=== PATIENT | male | born 1955 | race Caucasian/White ===

== ENCOUNTER 2019-02-21 09:22 | Outpatient (CLI) | payer MEDICARE, SELFPAY ==
--- NOTE | 2019-02-21 09:47 | MR_ITS ---
WS: [id number] MRI THORACIC SPINE WITHOUT CONTRAST TECHNIQUE: Sagittal T1, T2 and STIR imaging. Axial T2 imaging. Noncontrast imaging obtained. CLINICAL INFORMATION: PAIN IN THORACIC SPINE COMPARISON: MRI 5 FINDINGS: Mild thoracic curve. No acute compression. Moderate central canal stenosis at C7-T1. Severe right C7- T1 foraminal narrowing with right subarticular and proximal foraminal protrusion with contact of the right C8 nerve root and thoracic cord. Postoperative changes lower cervical spine. No significant thoracic spine stenosis. Cord signal is no rmal. Mild hypertrophic changes lower thoracic spine. No significant disc extrusions or protrusions i n the thoracic spine. Disc space heights and vertebral body heights are well-maintained. Moderate bony foraminal narrowing worse at left T8-T9 mainly due to disc osteophytic ridging. Mild ri ght T8-T9 bony foraminal narrowing. Mild bilateral T9-T10 and T10-T11 bony foraminal narrowing. Normal paravertebral soft tissues. Normal visualized thoracic aorta. Adrenal glands are normal. MR/MR thoracic spin wo con* [id number] IMPRESSION: 1. Moderate central canal stenosis C7-T1 with severe right foraminal narrowing and impingement on the exiting right C8 nerve root. 2. No significant thoracic canal stenosis. Thoracic cord signal is normal. 3. No significant disc extrusions or protrusions in the thoracic spine. 4. Bony foraminal narrowing worse at moderate left T8-T9. 5. Mild hypertrophic changes in the lower thoracic spine. 6. Mild to moderate facet arthropathy in the lower thoracic spine.
--- NOTE | 2019-02-21 09:51 | XRR_ITS ---
PROCEDURE INFORMATION: Exam: XR Left Elbow Exam date and time: 02/21/2019 11:11 AM Age: 63 years old Clinical indication: Pain; Elbow; Bilateral; Additional info: Pain in left elbow TECHNIQUE: Imaging protocol: XR Left elbow. Views: 3 or more views. COMPARISON: No relevant prior studies available. FINDINGS: Bones/joints: No acute bony injury or malalignment. Soft tissues: Soft tissue calcification arising from the radial aspect of the distal humeral metaphysis. XR/XR elbow LT min 3V* [id number] IMPRESSION: No acute bony injury or malalignment.
--- NOTE | 2019-02-21 09:51 | XRR_ITS ---
PROCEDURE INFORMATION: Exam: XR Right Elbow Exam date and time: 02/21/2019 11:11 AM Age: 63 years old Clinical indication: Pain; Elbow; Bilateral; Additional info: Pain in right elbow TECHNIQUE: Imaging protocol: XR Right elbow. Views: 3 or more views. COMPARISON: No relevant prior studies available. FINDINGS: Bones/joints: Small exostosis arising from the radial aspect of the distal right humeral metaphysis. No acute bone injury or malalignment. Soft tissues: Unremarkable. XR/XR elbow RT min 3V* [id number] IMPRESSION: No acute bone injury or malalignment.
--- NOTE | 2019-02-21 09:54 | MR_ITS ---
WS: [id number] MRI CERVICAL SPINE NONCONTRAST TECHNIQUE: Sagittal T1, T2 and STIR imaging. Axial T2, gradient, and fiesta imaging. CLINICAL INFORMATION: CERVICALGIA COMPARISON: MRI [address] 4 6017 FINDINGS: Straightening of the normal cervical lordosis. Prior postoperative changes anterior cervical fusion w ith partial corpectomy and interbody fusion. Anterior cervical fusion at C4-C7. Partial corpectomy wi th interbody fusion graft at C6. Moderate central canal stenosis at C3-C4 alignment appears unchanged since the prior MRI. C2-C3: Normal. C3-C4: Prominent central disc protrusion with subligamentous migration of disc material. Impingement on the cervical cord with moderate central canal stenosis. This measures slightly larger today but no t significantly changed since 2016. Mild bilateral bony foraminal narrowing. C4-C5: Prior postoperative changes anterior cervical fusion. Mild bilateral bony foraminal narrowing. Mild facet arthropathy. Spinal canal is patent. C5-C6: Postoperative changes anterior cervical fusion. Mild bilateral bony foraminal narrowing left g reater than right. Spinal canal is patent. C6-C7: Postoperative changes corpectomy with interbody fusion graft. Moderate left and mild right bon y foraminal narrowing. Spinal canal is patent. C7-T1: Central disc protrusion eccentric to the right with moderate central canal stenosis and fillin g of the right subarticular disc recess. Severe right proximal and moderate left foraminal narrowing. Right pericentral protrusion is progressed at this level measuring 8.3 x 5.9 mm Visualized brain stem structures: Normal. Prevertebral soft tissues: Normal. MR/MR cervical spin wo con* [id number] IMPRESSION: 1. Straightening of the normal cervical lordosis with stable postoperative heavenly nges described above. 2. Progressed right pericentral protrusion at C7-T1 with moderate central jonathan l stenosis and impingement right subarticular recess. This is progressed from p revious with a right pericentral component measuring 8.3 x 5.9 mm. Slight impin gement on the cervical cord. 3. Central disc protrusion C3-C4 with subligamentous migration of disc materia l is slightly progressed but not significantly changed since 2016 with moderate central canal stenosis and impingement on the cervical cord. 4. Multilevel bony foraminal narrowing worse at left C3-C4, left C4-C5, left C 5-C6, and left C6-C7. Severe right C7-T1 foraminal narrowing.
== END 2019-02-21 09:23 | disposition home or self-care (01) ==
PROVIDERS: Family Provider Nurse Practitioner Family; PCP Nurse Practitioner Family; Referring Provider Nurse Practitioner Family; Visit Provider Nurse Practitioner Family
DX: M48.03 Spinal stenosis, cervicothoracic region (principal); M50.21 Other cervical disc displacement, high cervical region; M25.521 Pain in right elbow; M25.522 Pain in left elbow; M54.6 Pain in thoracic spine
CPT/HCPCS: 72141; 72146; 73080

== ENCOUNTER 2019-08-25 09:01 | Outpatient (CLI) | payer MEDICARE, MEDICAID, SELFPAY ==
--- NOTE | 2019-08-25 | CT_ITS ---
WS: [id number] CT LUMBAR SPINE TECHNIQUE: Contrast-enhanced CT of the lumbar spine with coronal and sagittal reformatted images. CLINICAL INFORMATION: DEGENEREATIVE LUMBAR SPINAL STENOSIS COMPARISON: MRI July 03, 2015 DLP: 2043.[address] scans at [facility] use at least one of these dose optimization techniques: automat ed exposure control; mA and/or kV adjustment per patient size (includes targeted exams where dose is matched to clinical indication); or iterative reconstruction. FINDINGS: Mild lumbar curve convex right. No acute compression. Degenerative disc disease with disc space narro wing worse at L3-L4 L4-L5 and L5-S1 with vacuum disc phenomenon. This is progressed since the prior e xaminations. Mild disc bulging worse at L3-L4, L4-L5 and L5-S1. No high-grade central canal stenosis. L1-L2: Tiny right foraminal protrusion with mild right foraminal narrowing. Spinal canal and foramen are patent. L2-L3: Mild annular bulging with slight narrowing of the right subarticular recess. Mild left greater than right foraminal narrowing with slight contact of the exiting L2 nerve roots. Mild facet arthrop athy. L3-L4: Mild disc bulging with narrowing of the left subarticular recess. Mild central canal stenosis. Left foraminal disc osteophyte protrusion impinges the exiting L3 nerve root with moderate left fora fabien narrowing. L4-L5: Shallow broad-based central protrusion with slight effacement of ventral thecal sac. Mild cent ral canal stenosis. Moderate right and mild left foraminal narrowing. Mild facet arthropathy. L5-S1: Mild disc bulging with slight effacement of the ventral thecal sac. Spinal canal is patent. Bi lateral foraminal protrusions results in moderate bilateral foraminal narrowing. Contact of the exiti ng L5 nerve roots bilaterally. Mild facet arthropathy. Visualized pelvic bony structures: Normal. Paravertebral soft tissues: Normal. CT/CT lumbar spine w con [id number] IMPRESSION: 1. Mild lumbar curve. Progressive degenerative disc disease at L3-L4 L4-L5 and L5-S1 with disc space narrowing and vacuum disc phenomenon. 2. Mild central canal stenosis L3-L4 and L4-L5 due to shallow disc bulging wit h facet arthropathy and ligamentum flavum hypertrophy. Impingement on the left L3-4 subarticular recess. 3. Small left foraminal protrusion L3-4 contacts the exiting left L3 nerve suki t with moderate left foraminal narrowing. 4. Right L4-5 disc osteophyte protrusion impinges the exiting L4 nerve root wi th moderate right foraminal narrowing. 5. Moderate bilateral L5-S1 foraminal narrowing with small bilateral foraminal protrusions and contact of the exiting L5 nerve roots bilaterally.
--- NOTE | 2019-08-25 | CT_ITS ---
WS: [id number] CT CERVICAL MYELOGRAM TECHNIQUE: CT of the cervical spine coronal and sagittal reformatted images post intrathecal administ ration of contrast. CLINICAL INFORMATION: CERVICAL SPONDYLOSIS COMPARISON: MRI February 21, 2019 DLP: 1653.[address] scans at [facility] use at least one of these dose optimization techniques: automat ed exposure control; mA and/or kV adjustment per patient size (includes targeted exams where dose is matched to clinical indication); or iterative reconstruction. FINDINGS: Straightening of the normal cervical lordosis. Anterior interbody cervical fusion C4-C7. Partial jan ectomy C6 with interbody fusion graft. Interbody fusion grafts C4-5 with evidence of bony bridging be yond the confines of the graft. No evidence of hardware loosening. C2-C3: Tiny central protrusion. Mild left and no significant right foraminal narrowing. Mild facet ar thropathy. Spinal canal is patent. C3-C4: Prominent central disc protrusion with contact and indentation on cervical cord. Mild left and no significant right foraminal narrowing. Mild to moderate central canal stenosis unchanged. Mild fa cet arthropathy. C4-C5: Left pericentral osteophytic ridging. Mild left greater than right bony foraminal narrowing. M ild facet arthropathy. Mild central canal stenosis. C5-C6: Osteophytic ridging with slight effacement of the ventral thecal sac. Mild bilateral bony fora fabien narrowing. Spinal canal is patent. C6-C7: Disc osteophytic ridging. Mild left and no significant right foraminal narrowing. Spinal canal is patent. C7-T1: Images at this level degraded due to beam hardening artifact from hardware. Small central disc osteophyte protrusion. Larger protrusion seen on the recent MRI not seen today and may have involute d. Mild bilateral bony foraminal narrowing. Mild facet arthropathy. Visualized posterior fossa structures: Mastoid air cells are well aerated. CT/CT cervical spine w con [id number] IMPRESSION: 1. Straightening of the normal cervical lordosis with anterior cervical fusion C4-C7 with interbody fusion. Partial corpectomy at C6 with interbody fusion gr aft. 2. No evidence of hardware loosening. Interbody fusion graft at C4-5 with evid ence of bony bridging beyond the confines of the graft. 3. Central disc protrusion C3-C4 with indentation on the ventral cervical cord with mild to moderate central canal stenosis. This appears unchanged since the prior MRI. 4. Small central disc osteophyte protrusion C7-T1 with mild central canal sten osis and slight contact of the cervical cord. Previously described larger protr usion at this level not visualized today and may have involuted in the interim. 5. Multilevel mild to moderate bony foraminal narrowing worse at left C3-C4, l eft C4-C5, left C6-C7, and bilateral C7-T1.
--- NOTE | 2019-08-25 | IR_ITS ---
WS: [id number] MYELOGRAM CERVICAL SPINE Fluoroscopic guided cervical myelogram CLINICAL INFORMATION: CERVICAL SPONDYLOSIS, DEGENERATIVE LUMBAR STENOSIS TECHNIQUE: The procedure, including risks, benefits, and complications, were discussed with the patie nt who agreed to proceed. A timeout was performed to confirm correct patient, procedure, and site. Using sterile technique, the patient was prepped and draped in the usual sterile fashion. After admin istration of local anesthesia using 1% preservative-free lidocaine and using fluoroscopic guidance, a 22-gauge spinal needle was advanced into the subarachnoid space at the L5-S1 level. Subsequently 13 cc of Omnipaque 300 was administered into the thecal sac. The needle was removed and hemostasis was a chieved. Subsequently the table was tilted down and contrast flowed freely into the cervical spine. S pot fluoroscopic images were obtained. FLUOROSCOPIC TIME: 2.3 minutes. Spot fluoroscopic images demonstrate no instability on flexion-extension in the lumbar or cervical sp ine. Prior postoperative changes anterior cervical fusion in the cervical spine C4-C7 with partial co rpectomy at C6-7. Fusion appears in good position. Normal C1-2 articulation. Mild lumbar curve convex right. Cholecystectomy clips. Disc space narrowing lumbar spine worse at L4-L5 and L5-S1. Aortic amy cification. Please see CT myelogram report for additional detail. IR/IR myelogram spine cervic/lumb IMPRESSION: 1. Uncomplicated lumbar and cervical myelogram. 2. No instability on flexion-extension in the lumbar or cervical spine. 3. Prior postoperative changes ACF C4-C7 with partial corpectomy at C6 and C7 with interbody fusion graft. Hardware appears in good position. 4. Please see CT myelogram report for additional detail.
[2019-08-25] MEDS: iohexol 300 mg/mL 50 mL Btl INTRATHECA (10:41)
[2019-08-25 10:57] LABS: Prothrombin Time (Patient) 11.5 Seconds (10.5-13.3)
== END 2019-08-25 09:02 | disposition home or self-care (01) ==
LOC: RADWPI 09:05
PROVIDERS: Family Provider Nurse Practitioner Family; PCP Nurse Practitioner Family; Visit Provider Neurological Surgery
DX: M47.22 Other spondylosis with radiculopathy, cervical region (principal); M54.2 Cervicalgia; M48.061 Spinal stenosis, lumbar region without neurogenic claudication; D69.9 Hemorrhagic condition, unspecified; M51.36 Other intervertebral disc degeneration, lumbar region; M25.78 Osteophyte, vertebrae
CPT/HCPCS: 62305; 72040; 72120; 72126; 72132; 85610; Q9967

== ENCOUNTER 2019-08-25 10:52 | Outpatient (CLI) | payer MEDICARE, MEDICAID, SELFPAY ==
--- NOTE | 2019-08-25 | XR_ITS ---
WS: [id number] PROCEDURE: XR chest 2V* [id number] CLINICAL INFORMATION: DYSPNEA COMPARISON: 017 FINDINGS: Heart: Cardiomegaly. Aortic calcification. Lungs: Moderate chronic emphysematous changes. No acute pulmonary infiltrates. Bones: Postoperative changes lower cervical spine. XR/XR chest 2V* [id number] IMPRESSION: No acute chest findings.
== END 2019-08-25 10:53 | disposition home or self-care (01) ==
LOC: RADWPI 10:54
PROVIDERS: Family Provider Nurse Practitioner Family; PCP Nurse Practitioner Family; Visit Provider Nurse Practitioner Family
DX: R06.00 Dyspnea, unspecified (principal)
CPT/HCPCS: 71046

== ENCOUNTER 2021-03-04 11:30 | Outpatient (CLI) | payer MEDICARE, MEDICAID, SELFPAY ==
[2021-03-04 11:42] VITALS: BP 149/89; PULSE 94; RESP 17; TEMP 36.5; O2SAT 97; BMI 27.1
[2021-03-04 12:43] VITALS: BP 110/69; PULSE 62; RESP 16; TEMP 36.5; O2SAT 96
[2021-03-04 13:45] VITALS: BP 106/62; PULSE 63; RESP 17; TEMP 36.5; O2SAT 95
== END 2021-03-04 11:31 | disposition home or self-care (01) ==
LOC: OPS 11:36
PROVIDERS: PCP Nurse Practitioner Family; Visit Provider Nurse Practitioner Family
DX: U07.1 COVID-19 (principal)
CPT/HCPCS: 96365

== ENCOUNTER 2023-11-20 11:34 | Emergency (ER) | payer MEDICARE, MEDICAID, SELFPAY ==
[2023-11-20 11:41] VITALS: BP 167/82; PULSE 69; RESP 16; TEMP 36.8; O2SAT 98
--- NOTE | 2023-11-20 12:21 | USCV_ITS ---
Giacomo George Age: 68 Gender: M : 1955 Exam Date: 11/20/2023 12:47 Ordering Phys: Jesus Banks MD Technologist: Niko Colby Exam Location: [facility] – [place] Indication: calf pain PROCEDURES: Venous duplex imaging was performed in only the left lower extremity. The following venous structures were evaluated: common femoral vein, profunda vein, proximal portion of the greater saphenous vein, superficial femoral vein, and the popliteal vein. In addition, the posterior tibial and peroneal trunk were evaluated. Serial compression, augmentation maneuvers, and spectral Doppler flow evaluation were performed. FINDINGS: There is no dvt visualized at this time. There does appear to be thrombus extending through most of the GSV from saph-fem junction to ankle. There is a small section below knee that appears free of thrombus. This thrombus appears partial and echogenic. CONCLUSIONS No DVT left lower extremity. Chronic appearing superficial thrombophlebitis left GSV to femoral junction. Dr. Binta Og DO (Electronically Signed) Final Date: 20 November 2023 13:16 S
--- NOTE | 2023-11-20 12:35 | W.ED.EXTPRO ---
HPI - Extremity Problem General: Chief complaint: Extremity Problem,Nontraumatic Stated complaint: LT leg swollen Time Seen by Provider: 11/20/23 11:37 History of Present Illness: Patient is a 68-year-old male who is currently on Eliquis due to history of atrial fibrillation and presents to the ER due to complaints of left lower calf pain for about 2-1/2 weeks. He reports having a focal area of tenderness to the posterior calf. He states that will sometimes be warm to the touch but is not currently so. He denies any known recent injury or trauma but does have a previous spider bite envenomation at that area that had a large open wound with delayed healing and wound closure several years ago. Associated symptoms: Deny chest pain, fever(s) or rash Related Data Home Medications Medication Instructions Recorded Confirmed albuterol sulfate 90 mcg/actuation 2 puff inhalation Q4H PRN 11/20/23 11/20/23 aerosol inhaler (Ventolin HFA) Shortness Of Breath amlodipine 5 mg tablet 5 mg PO BID PRN elevated blood 11/20/23 11/20/23 pressure apixaban 5 mg tablet (Eliquis) 5 mg PO BID 11/20/23 11/20/23 ascorbic acid (vitamin C) 1,000 mg 500 mg PO DAILY 11/20/23 11/20/23 tablet (Vitamin C) aspirin 81 mg tablet,delayed 81 mg PO DAILY 11/20/23 11/20/23 release bisoprolol fumarate 5 mg tablet 5 mg PO DAILY 11/20/23 11/20/23 cetirizine 10 mg tablet 10 mg PO DAILY 11/20/23 11/20/23 clonidine HCl 0.1 mg tablet 0.1 mg PO DAILY PRN high blood 11/20/23 11/20/23 pressure cyanocobalamin (vitamin B-12) 1,000 mcg PO DAILY 11/20/23 11/20/23 1,000 mcg tablet (Vitamin B-12) ergocalciferol (vitamin D2) 1,250 1,250 mcg PO Q7D 11/20/23 11/20/23 mcg (50,000 unit) capsule ipratropium 0.5 mg-albuterol 3 mg 3 ml inhalation QID 11/20/23 11/20/23 (2.5 mg base)/3 mL nebulization soln isosorbide mononitrate 30 mg 30 mg PO QAM 11/20/23 11/20/23 tablet,extended release 24 hr labetalol 100 mg tablet 100 mg PO BID 11/20/23 11/20/23 levothyroxine 50 mcg tablet 50 mcg PO DAILY 11/20/23 11/20/23 losartan 100 mg tablet 100 mg PO DAILY 11/20/23 11/20/23 meloxicam 15 mg tablet 15 mg PO DAILY 11/20/23 11/20/23 nitroglycerin 0.4 mg sublingual 0.4 mg sublingual PRN PRN chest 11/20/23 11/20/23 tablet pain spironolactone 50 mg tablet 50 mg PO BID 11/20/23 11/20/23 testosterone cypionate 200 mg/mL 300 mg IM Q7D 11/20/23 11/20/23 intramuscular oil tizanidine 4 mg tablet 4 mg PO QID PRN muscle pain 11/20/23 11/20/23 trazodone 100 mg tablet 100 mg PO DAILY PRN sleep 11/20/23 11/20/23 zinc gluconate 50 mg tablet 50 mg PO DAILY 11/20/23 11/20/23 Allergies Allergy/AdvReac Type Severity Reaction Status Date / Time No Known Allergies Allergy Verified 11/20/23 11:45 Review of Systems Const: Denies: fever(s), chills or diaphoresis Card: Denies: chest pain Resp: Denies: dyspnea GI: Denies: abdominal pain, nausea or vomiting Skin/Breast: Denies: rash Neuro: Denies: headache(s) Physical Exam Const: COMMON NORMALS: no acute distress, average body habitus, alert and well nourished GENERAL APPEARANCE: cooperative ORIENTATION/CONSCIOUSNESS: Yes awake HENMT: COMMON NORMALS: normocephalic and atraumatic HEAD & SCALP: normocephalic and atraumatic Eye: COMMON NORMALS: conjunctivae normal CONJUNCTIVA: Yes conjunctivae normal Neck/C-Spine: GENERAL: Yes normal visual inspection Resp: COMMON NORMALS: normal respiratory effort, No retractions and No use of accessory muscles Cardio: COMMON NORMALS: regular rhythm and Peripheral pulses 2+ throughout RHYTHM: regular rhythm PERIPHERAL PULSES: Peripheral pulses 2+ throughout GI: COMMON NORMALS: Soft to palpation and non-tender PALPATION: Yes Soft to palpation Extremity: COMMON NORMALS: full ROM and no pedal edema OTHER: Varicose veins noted to the left lower extremity. No erythema or warmth noted to the calf or proximal thigh. 2+ DP and PT pulses to bilateral lower extremities. Patient does have a scar to the medial portion of the left lower calf and leg from previous spider bite wound. He has a focal area tenderness to the superior portion of this scar. There is no fluctuance or redness or warmth of this area. Neuro: COMMON NORMALS: no focal motor deficits SENSORIUM/ORIENTATION: Yes alert Skin: COMMON NORMALS: no rashes or lesions noted GENERAL SKIN EXAM: no rashes or lesions noted Course Vital Signs: Vital signs: Vital Signs Temperature 98.3 F 11/20/23 11:41 Pulse Rate 69 11/20/23 11:41 Respiratory Rate 16 11/20/23 11:41 Blood Pressure 167/82 11/20/23 11:41 Pulse Oximetry 98 11/20/23 13:09 Oxygen Delivery Me thod Room Air 11/20/23 13:09 MDM - Extremity (Nontraumatic) Medical Decision Making Patient is a well-appearing 68-year-old gentleman who presents to the ER with primary complaint of concern for possible DVT in the left lower extremity. He states he has had over 2-week history of some pain to the distal left posterior calf. He does have a previous wound to this injury from a spider bite. Patient is anticoagulated on Eliquis. He states his PCP suggested he come to the ER for evaluation. His exam is benign other than a noticeable scar from his previous spider bite. He has neurovascular intact in all 4 extremities. Venous duplex of the left lower extremity does not show any evidence of a DVT. He does have what appears to be chronic superficial thrombophlebitis. His pain is localized to a very specific 1 to 2 cm area of the distal calf. There is no evidence of fluid collection or abscess in this area. There is no erythema or warmth to suggest a cellulitis. He is nontoxic in appearance. I have recommended supportive care with rest, elevation, warm compresses, and follow-up with the PCP. At this time I do not see any indication for additional labs or imaging and refer him back to his PCP. All radiology interpretation(s) finalized by discharge Discharge Plan Discharge Patient Disposition: Home Clinical Impression: Superficial thrombophlebitis Qualifiers: Superficial thrombophlebitis-Involved body area: lower extremity Laterality: left Qualified Code(s): I80.02 - Phlebitis and thrombophlebitis of superficial vessels of left lower extremity Condition: Stable Prescriptions: No Action ascorbic acid (vitamin C) [Vitamin C] 1,000 mg Tablet 500 mg PO DAILY clonidine HCl 0.1 mg tablet 0.1 mg PO DAILY PRN (Reason: high blood pressure ) ipratropium-albuterol 0.5 mg-3 mg(2.5 mg base)/3 mL solution for nebulization 3 ml INHALATION QID cetirizine 10 mg tablet 10 mg PO DAILY tizanidine 4 mg tablet 4 mg PO QID PRN (Reason: muscle pain ) meloxicam 15 mg tablet 15 mg PO DAILY isosorbide mononitrate 30 mg tablet extended release 24 hr 30 mg PO QAM cyanocobalamin (vitamin B-12) [Vitamin B-12] 1,000 mcg Tablet 1,000 mcg PO DAILY amlodipine 5 mg tablet 5 mg PO BID PRN (Reason: elevated blood pressure ) aspirin [Aspir-81] 81 mg Tablet,Delayed Release (Dr/Ec) 81 mg PO DAILY bisoprolol fumarate 5 mg tablet 5 mg PO DAILY trazodone 100 mg tablet 100 mg PO DAILY PRN (Reason: sleep ) levothyroxine 50 mcg tablet 50 mcg PO DAILY nitroglycerin 0.4 mg tablet, sublingual 0.4 mg sublingual PRN PRN (Reason: chest pain ) zinc gluconate 50 mg Tablet 50 mg PO DAILY ergocalciferol (vitamin D2) 1,250 mcg (50,000 unit) capsule 1,250 mcg PO Q7D testosterone cypionate 200 mg/mL oil 300 mg IM Q7D labetalol 100 mg tablet 100 mg PO BID albuterol sulfate [Ventolin HFA] 90 mcg/actuation HFA aerosol inhaler 2 puff INHALATION Q4H PRN (Reason: Shortness Of Breath) losartan 100 mg tablet 100 mg PO DAILY spironolactone 50 mg tablet 50 mg PO BID Eliquis 5 mg tablet 5 mg PO BID Discharge Orders: Discharge ED (Routine); Ordered 11/20/23 Ordered By: Jesus Banks Referrals: Sheba Ruelas [Primary Care Provider] - Patient Instructions: Opioid Safety, Pain Management Activity Restrictions/Additional Instructions: Apply warm compresses to the affected area to help with pain. Keep your leg elevated to help with pain. Follow-up with your PCP Coding Level of Care Code ED [employer] for [employer]
[2023-11-20 13:09] VITALS: O2SAT 98
[2023-11-20 14:02] VITALS: BP 171/90; PULSE 77; RESP 16; O2SAT 98
[2023-11-20 14:08] VITALS: BP 171/90; PULSE 84; O2SAT 99
== END 2023-11-20 14:16 | disposition home or self-care (01) ==
PROVIDERS: Emergency Provider Student in an Organized Health Care Education/Training Program; PCP Nurse Practitioner Family
DX: I80.02 Phlebitis and thrombophlebitis of superficial vessels of left lower extremity (principal); Z79.82 Long term (current) use of aspirin; Z79.01 Long term (current) use of anticoagulants
CPT/HCPCS: 93971; 99284